=== PATIENT | male | born 1945 | race African-American/Black ===

== ENCOUNTER 2016-10-12 10:19 | Day surgery (SDC) | payer OTHER ==
[2016-10-11 16:10] VITALS: Ht 185.4 cm; Wt 73.0 kg
[2016-10-12] VITALS (13 sets, daily range): BP systolic 133–173; BP diastolic 74–92; PULSE 45–69; RESP 16–25
[~2016-10-12] VITALS: Ht 185.4 cm; Wt 73.0 kg
[2016-10-12] MEDS ORDERED: PHEN30CA79 PO (10:51)
[2016-10-12] MEDS ORDERED: ROPIVACAINE 0.5 % 30 ML VIAL ONE (12:24)
[2016-10-12] MEDS ORDERED: METHYLENE BLUE 10 MG/ML VIAL ONE (12:24)
[2016-10-12] MEDS ORDERED: POLYMYXIN/BACITRACIN 1L IRRIG ONE (12:24)
[2016-10-12] MEDS ORDERED: POVIDONE IODINE 10% 28.4 GM OINT ONE (12:25)
--- NOTE | 2016-10-12 12:26 | RADRPT ---
Vent Rate: 49 bpm RR Interval: 0 msec RI Interval: 232 msec QRS Duration: 92 msec QT Interval: 456 msec QTC Interval: 411 msec P-R-T [place]: 72 - 75 - 72 degrees Marked sinus bradycardia with 1st degree AV block Voltage criteria for left ventricular hypertrophy Abnormal ECG Electronically Signed By: Jeremy Rowland [id number]
[2016-10-12] MEDS ORDERED: MIDAZOLAM 1 MG/ML 2 ML INJ ONE (12:53)
[2016-10-12] MEDS ORDERED: FENTAnyl 50 MCG/ML VIAL ONE (12:53)
[2016-10-12] MEDS ORDERED: CEFAZOLIN 1 GM INJ ONE (13:10)
[2016-10-12] MEDS ORDERED: BUPIVACAINE 0.5% (SDV) 30 ML INJ ONE (13:27)
[2016-10-12] MEDS ORDERED: DEXAMETHASONE 4 MG/ML 1 ML INJ ONE ×2 (13:27→14:17)
[2016-10-12] MEDS ORDERED: BUPIVACAINE 0.5% (MPF) 10 ML VIAL INJ ONE (13:44)
[2016-10-12] MEDS ORDERED: DEXAMETHASONE 4 MG/ML 1 ML INJ INJ ONE (13:44)
[2016-10-12] MEDS ORDERED: ONDANSETRON 4 MG INJ ONE (14:17)
[2016-10-12] MEDS ORDERED: FAMOTIDINE 20 MG INJ ONE (14:17)
[2016-10-12] MEDS ORDERED: ONDANSETRON 4 MG INJ IV PRN (14:30)
[2016-10-12] MEDS ORDERED: HYDROmorphONE (0.2 MG/ML) 10ML SYG IV PRN ×2 (14:30)
--- NOTE | 2016-10-12 15:21 | PREOPHP ---
DATE OF ADMISSION: 10/12/2016 HISTORY OF PRESENT ILLNESS: The patient is being admitted to the hospital for elective foot surgery . Palliative treatment unsuccessful. The patient has been explained the surgery complications, alt ernatives, and elected to have elective foot surgery. The patient's pain is on the bunion on the ri ght foot. ALLERGIES: PATIENT DENIES ALLERGIES TO ANY MEDICINE. MEDICATIONS: The patient is taking Dilantin. REVIEW OF SYSTEMS: Shows heart, lung, liver, kidney, thyroid no problems. Diabetes negative. Nega tive smoking, negative alcohol. See any other pertinent history and upper extremity physical exam by Dr. Watts. PHYSICAL EXAMINATION: LOWER EXTREMITY: Shows DP and PT equal and regular, +3. NEUROLOGICAL: Negative for pathology. DERMATOLOGICAL: Negative for pathology. Musculoskeletal and x-ray findings show an HAV with bunion, right foot. FINAL DIAGNOSIS: Hallux abducto valgus with bunion, right foot. Dictated By: RENEE COCHRAN/LUC Conf#: [id number] DID#: [id number]
== END 2016-10-12 16:37 | disposition home or self-care (01) ==
LOC: SDS 10:19
PROVIDERS: ATTEND Podiatrist
DX: M20.11 Hallux valgus (acquired), right foot (principal); M21.611 Bunion of right foot
CPT/HCPCS: 28299; 88304; 88311; 93005; C1713; J0690; J1100; J2250; J3010; Q4131; J2405; J2795

== ENCOUNTER 2018-02-07 07:09 | Day surgery (SDC) | END 2018-02-07 14:10 | disposition home or self-care (01) ==